=== PATIENT | male | born 1970 | race Caucasian/White ===

== ENCOUNTER 2017-08-09 23:00 | Emergency (ER) | payer BC ==
[2017-08-09] MEDS ORDERED: Sodium Chloride 0.9% 1,000 ML IV ONE (23:25)
--- NOTE | 2017-08-09 23:33 | EDM.PDOC ---
ED HPI GENERAL MEDICAL PROBLEM - General Chief Complaint: Abdominal Pain Stated Complaint: DEHYDRATED Time Seen by Provider: 08/09/17 23:08 Source of Information: Reports: Patient History Limitations: Reports: No Limitations - History of Present Illness INITIAL COMMENTS - FREE TEXT/NARRATIVE: 47 y.o.w.m came to the ed with his SO due to severe diarrhea, watery stool. Pt has crohns diseases, denies blood in his stool and does not take any meds at this time. Denied F/C, no Nausea or vomiting. Did not travel out a the state. No F/C. No other acute medical issues at this time. BP 133/70 pulse 82 Temp 38.1 RR 18 Pulse ox 98% on RA Onset Date: 08/09/17 Onset Time: 17:00 Duration: Hour(s):, Intermittent Location: Reports: Abdomen Quality: Reports: Same as Previous Episode Severity: Moderate (water) Improves with: Reports: Rest Worsens with: Reports: Movement Context: Reports: Other (Crohns disease) Other Treatments [employer]: pepto Abdomen Pain Score (Numeric/FACES): 7 - Related Data Allergies Allergy/AdvReac Type Severity Reaction Status Date / Time No Known Allergies Allergy Verified 08/09/17 23:07 Home Meds: Home Meds metroNIDAZOLE [Flagyl] 500 mg PO Q12H #10 tab 08/10/17 [Rx] Past Medical History Cardiovascular History: Reports: High Cholesterol, Other (See Below) Other Cardiovascular History: hx of hypertension Gastrointestinal History: Reports: Other (See Below) Other Gastrointestinal History: crohns - Infectious Disease History Infectious Disease History: Reports: Chicken Pox - Past Surgical History GI Surgical History: Reports: Colonoscopy Social & Family History - Family History Family Medical History: Noncontributory - Tobacco Use Smoking Status *Q: Never Smoker Second Hand Smoke Exposure: No - Caffeine Use Caffeine Use: Reports: None - Alcohol Use Days Per Week of Alcohol Use: 2 Number of Drinks Per Day: 6 Total Drinks Per Week: 12 - Recreational Drug Use Recreational Drug Use: No ED ROS GENERAL - Review of Systems Review Of Systems: See Below Constitutional: Reports: Weakness HEENT: Reports: No Symptoms Respiratory: Reports: No Symptoms Cardiovascular: Reports: No Symptoms Endocrine: Reports: No Symptoms GI/Abdominal: Reports: Abdominal Pain, Other (watery stool) : Reports: No Symptoms Musculoskeletal: Reports: No Symptoms Skin: Reports: No Symptoms Neurological: Reports: No Symptoms Psychiatric: Reports: No Symptoms Hematologic/Lymphatic: Reports: No Symptoms Immunologic: Reports: No Symptoms ED EXAM, GI/ABD - Physical Exam Exam: See Below Exam Limited By: No Limitations General Appearance: Alert, WD/WN, Mild Distress Eyes: Bilateral: Normal Appearance Ears: Normal External Exam, Normal Canal Nose: Normal Inspection, Normal Mucosa Throat/Mouth: Normal Inspection, Normal Lips Head: Atraumatic, Normocephalic Neck: Normal Inspection, Supple, Non-Tender Respiratory/Chest: No Respiratory Distress, Lungs Clear, Normal Breath Sounds Cardiovascular: Normal Peripheral Pulses, Regular Rate, Rhythm, No Edema, No Gallop, No JVD, No Murmur GI/Abdominal Exam: No Organomegaly, Tender (LLQ of abdomen) (Male) Exam: Deferred Rectal (Males) Exam: Deferred Back Exam: Normal Inspection, Full Range of Motion Extremities: Normal Inspection, Normal Range of Motion, Non-Tender, No Pedal Edema Neurological: Alert, Oriented, CN II-XII Intact, Normal Cognition, Normal Gait Psychiatric: Normal Affect, Normal Mood Skin Exam: Warm, Dry, Intact, Normal Color, No Rash Lymphatic: No Adenopathy Course - Vital Signs Text/Narrative:: 47 y.o.w.m came to the ed with his SO due to severe diarrhea, watery stool. Pt has crohns diseases, denies blood in his stool and does not take any meds at this time. Denied F/C, no Nausea or vomiting. Did not travel out a the [facility]. No F/C. No other acute medical issues at this time. BP 133/70 pulse 82 Temp 38.1 RR 18 Pulse ox 98% on RA PE: WNWD WM with watery diarrhea Labs: CBC, BMP were Nl UDS was pos for THC products Impression: Watery diarrhea Tx: NS, Immodium and Falgyl Reexam: Pt had no MP after the first does of Flagyl and Immodium, Stool Cx is pending Plan: D/C with instructions Last Recorded V/S: Last Vital Signs Temp 38.1 C 08/09/17 23:08 Pulse 86 08/09/17 23:08 Resp 20 08/09/17 23:08 BP 130/77 08/09/17 23:08 Pulse Ox 100 08/09/17 23:08 - Orders/Labs/Meds Orders: Active Orders 24 hr Category Date Time Status CULTURE-STOOL [MREF] Stat Lab 08/09/17 23:42 Received Sodium Chloride 0.9% [Normal Saline] 1,000 ml Med 08/10/17 00:38 Active IV .BOLUS Medication Orders Sodium Chloride (Normal Saline) 1,000 mls @ 999 mls/hr IV .BOLUS ONE Stop: 08/10/17 01:38 Last Admin: 08/10/17 00:42 Dose: 999 mls/hr Labs: Laboratory Tests 08/09/17 08/09/17 08/09/17 Range/Units 23:38 23:38 23:38 WBC 12.1 H (4.5-12.0) X10-3/uL RBC 5.12 (4.30-5.75) x10(6)uL Hgb 16.3 H (11.5-15.5) g/dL Hct 47.6 (30.0-51.3) % MCV 92.9 (80-96) fL MCH 31.8 (27.7-33.6) pg MCHC 34.3 (32.2-35.4) g/dL RDW 12.1 (11.5-15.5) % Plt Count 210 (125-369) X10(3)uL MPV 9.1 (7.4-10.4) fL Add Manual Diff Yes Neutrophils % (Manual) 76 (46-82) % Band Neutrophils % 6 (0-6) % Lymphocytes % (Manual) 13 (13-37) % Monocytes % (Manual) 5 (4-12) % PT 10.8 (8.7-11.1) INR 1.07 (0.89-1.13) Sodium 138 (135-145) mmol/L Potassium 3.9 (3.5-5.3) mmol/L Chloride 103 (100-110) mmol/L Carbon Dioxide 27 (21-32) mmol/L BUN 16 (7-18) mg/dL Creatinine 0.8 (0.70-1.30) mg/dL Est Cr Clr Drug Dosing 125.29 mL/min Estimated GFR (MDRD) > 60 (>60) BUN/Creatinine Ratio 20.0 (9-20) Glucose 120 H (80-116) mg/dL Calcium 9.3 (8.6-10.2) mg/dL Total Bilirubin (0.1-1.3) mg/dL Direct Bilirubin (0.10-0.20) mg/dL AST (5-25) IU/L ALT (12-36) U/L Alkaline Phosphatase (56-112) IU/L Total Protein (6.0-8.0) g/dL Albumin (3.5-5.2) g/dL Amylase (25-115) U/L Urine Opiates Screen (NEGATIVE) Ur Oxycodone Screen (NEGATIVE) Ur Propoxyphene Screen (NEGATIVE) Ur Barbituates Screen (NEGATIVE) Ur Tricyclics Screen (NEGATIVE) Ur Phencyclidine Scrn (NEGATIVE) Ur Amphetamine Screen (NEGATIVE) Urine MDMA Screen (NEGATIVE) U Benzodiazepines Scrn (NEGATIVE) U Cocaine Metab Screen (NEGATIVE) U Marijuana (THC) Screen (NEGATIVE) Ethyl Alcohol (<0.03) % 08/09/17 08/09/17 08/10/17 Range/Units 23:38 23:38 00:01 WBC (4.5-12.0) X10-3/uL RBC (4.30-5.75) x10(6)uL Hgb (11.5-15.5) g/dL Hct (30.0-51.3) % MCV (80-96) fL MCH (27.7-33.6) pg MCHC (32.2-35.4) g/dL RDW (11.5-15.5) % Plt Count (125-369) X10(3)uL MPV (7.4-10.4) fL Add Manual Diff Neutrophils % (Manual) (46-82) % Band Neutrophils % (0-6) % Lymphocytes % (Manual) (13-37) % Monocytes % (Manual) (4-12) % PT (8.7-11.1) INR (0.89-1.13) Sodium (135-145) mmol/L Potassium (3.5-5.3) mmol/L Chloride (100-110) mmol/L Carbon Dioxide (21-32) mmol/L BUN (7-18) mg/dL Creatinine (0.70-1.30) mg/dL Est Cr Clr Drug Dosing mL/min Estimated GFR (MDRD) (>60) BUN/Creatinine Ratio (9-20) Glucose (80-116) mg/dL Calcium (8.6-10.2) mg/dL Total Bilirubin 0.4 (0.1-1.3) mg/dL Direct Bilirubin 0.08 L (0.10-0.20) mg/dL AST 15 (5-25) IU/L ALT 71 H (12-36) U/L Alkaline Phosphatase 77 (56-112) IU/L Total Protein 7.5 (6.0-8.0) g/dL Albumin 3.7 (3.5-5.2) g/dL Amylase 42 (25-115) U/L Urine Opiates Screen Negative (NEGATIVE) Ur Oxycodone Screen Negative (NEGATIVE) Ur Propoxyphene Screen Negative (NEGATIVE) Ur Barbituates Screen Negative (NEGATIVE) Ur Tricyclics Screen Negative (NEGATIVE) Ur Phencyclidine Scrn Negative (NEGATIVE) Ur Amphetamine Screen Negative (NEGATIVE) Urine MDMA Screen Negative (NEGATIVE) U Benzodiazepines Scrn Negative (NEGATIVE) U Cocaine Metab Screen Negative (NEGATIVE) U Marijuana (THC) Screen Positive H (NEGATIVE) Ethyl Alcohol < 0.03 (<0.03) % Meds: Medications Generic Name Dose Route Start Last Admin Trade Name Freq PRN Reason Stop Dose Admin Sodium Chloride 1,000 mls @ 999 mls/hr 08/10/17 00:38 08/10/17 00:42 Normal Saline IV 08/10/17 01:38 999 mls/hr .BOLUS ONE Administration Discontinued Medications Generic Name Dose Route Start Last Admin Trade Name Freq PRN Reason Stop Dose Admin Sodium Chloride 1,000 mls @ 999 mls/hr 08/09/17 23:25 08/09/17 23:34 Normal Saline IV 08/10/17 00:25 999 mls/hr .BOLUS ONE Administration Sodium Chloride 1,000 mls @ 999 mls/hr 08/10/17 00:45 Normal Saline IV ASDIRECTED SEAN Loperamide HCl 4 mg 08/10/17 00:10 08/10/17 00:41 Imodium Ad PO 08/10/17 00:11 4 mg ONETIME ONE Administration Loperamide HCl 2 mg 08/10/17 00:19 08/10/17 00:43 Imodium Ad PO 08/10/17 00:20 Not Given ONETIME ONE Loperamide HCl Confirm 08/10/17 00:30 08/10/17 00:43 Imodium Administered 08/10/17 00:31 Not Given Dose 4 mg .ROUTE .STK-MED ONE Loperamide HCl 4 mg 08/10/17 00:39 08/10/17 00:43 Imodium Ad PO 08/10/17 00:40 Not Given ONETIME ONE Metronidazole 500 mg 08/10/17 00:10 08/10/17 00:29 Flagyl PO 08/10/17 00:11 500 mg ONETIME ONE Administration Departure - Departure Time of Disposition: 02:15 Disposition: Home, Self-Care 01 Condition: Good Clinical Impression: Dehydration, Watery diarrhea - Discharge Information Prescriptions: metroNIDAZOLE [Flagyl] 500 mg PO Q12H #10 tab Referrals: Albert Henson MD [Primary Care Provider] - Forms: ED Department Discharge Additional Instructions: Please increase water intake, take flagyl as recommended, pending stool culture results, coming back in a few days. Take immodium 2 mg after each unformed stool not more the 16 mg in 24 hours. Please f/u, come back if your symptoms get worse acutely. - My Orders Last 24 Hours: My Active Orders 08/09/17 23:42 CULTURE-STOOL [MREF] Stat 08/10/17 00:38 Sodium Chloride 0.9% [Normal Saline] 1,000 ml IV .BOLUS - Assessment/Plan Last 24 Hours: My Active Orders 08/09/17 23:42 CULTURE-STOOL [MREF] Stat 08/10/17 00:38 Sodium Chloride 0.9% [Normal Saline] 1,000 ml IV .BOLUS
[2017-08-10] MEDS ORDERED: metroNIDAZOLE 500 MG Tab PO ONE (00:10)
[2017-08-10] MEDS ORDERED: Loperamide 2 MG Tab PO ONE ×3 (00:10→00:39)
[2017-08-10] MEDS ORDERED: Sodium Chloride 0.9% 1,000 ML IV ONE (00:38)
[2017-08-10] MEDS: Loperamide 2 MG Cap ONE ×2 (00:41→00:43)
[2017-08-10] MEDS ORDERED: Sodium Chloride 0.9% 1,000 ML IV SCH (00:45)
[2017-08-10] MEDS ORDERED: metroNIDAZOLE 500 MG Tab ONE (01:17)
[2017-08-10 01:32] VITALS: BP 128/62
== END 2017-08-10 01:46 | disposition home or self-care (01) ==
LOC: FB.ED 23:00
DX: E86.0 Dehydration (principal); R19.7 Diarrhea, unspecified; I10 Essential (primary) hypertension
CPT/HCPCS: 36415; 80048; 80076; 80305; 82150; 85025; 85610; 87015; 87045; 87046; 87899; 96360; 96361; 99284; A9270; G0480; J7040